=== PATIENT | female | born 1975 | race African-American/Black ===

== ENCOUNTER 2016-12-22 19:10 | Emergency (ER) | payer MEDICAID ==
[~2016-12-22] VITALS: Ht 177.8 cm; Wt 100.0 kg
[~2016-12-22 19:10] MED LIST: ASPIRIN PO
[2016-12-22] MEDS ORDERED: ALPRAZOLAM 0.25 MG TABLET PO ONE (22:15)
[2016-12-22 22:50] VITALS: BP 135/77
== END 2016-12-22 22:50 | disposition home or self-care (01) ==
LOC: ER 20:46
DX: R07.89 Other chest pain (principal); R51 Headache; R91.8 Other nonspecific abnormal finding of lung field; I10 Essential (primary) hypertension; I51.7 Cardiomegaly
CPT/HCPCS: 99283

== ENCOUNTER 2017-07-25 13:09 | Emergency (ER) | payer MEDICAID ==
[~2017-07-25] VITALS: Ht 177.8 cm; Wt 103.5 kg
[2017-07-25 14:45] LABS: BASOPHILS % 0.5 % (0.0-2.0); EOSINOPHILS % 0.9 % (0.0-5.0); HEMATOCRIT. 36.1 % (36.0-48.0); HEMOGLOBIN. 12.1 g/dL (12.0-16.0); LYMPHOCYTES % 30.6 % (20.0-50.0); MEAN CORPUSCULAR HEMOGLOBIN 29.9 pg (28.0-32.0); MEAN CORPUSCULAR VOLUME 89.5 fL (81.0-99.0); MEAN PLATELET VOLUME 8.4 fl (7.4-10.4); MONOCYTES % 8.6 % (2.0-8.0); NEUTROPHILS % 59.4 % (40.0-76.0); PLATELET 215 x1000/uL (130-400); RED BLOOD CELL COUNT 4.04 mill/uL (4.2-5.4); RED CELL DISTRIBUTION WIDTH 14.2 % (11.6-14.6)
[2017-07-25 14:53] LABS: CARBON DIOXIDE 29 mEq/L (21-32); CHLORIDE 104 mEq/L (98-107); TROPONIN I < 0.02 ng/mL (0.00-0.04)
[2017-07-25 14:59] LABS: INR 1.1; PROTHROMBIN TIME 11.1 sec (9.4-11.6)
[2017-07-25 15:01] LABS: *AMPHETAMINES SCREEN URINE NEGATIVE (NEGATIVE); *BARBITURATES SCREEN URINE NEGATIVE (NEGATIVE); *BENZODIAZEPINES SCREEN URINE NEGATIVE (NEGATIVE); *COCAINE SCREEN URINE NEGATIVE (NEGATIVE); CANNABINOID URINE SCREEN NEGATIVE (NEGATIVE); METHADONE URINE SCREEN NEGATIVE (NEGATIVE); OPIATES URINE SCREEN NEGATIVE (NEGATIVE); PHENCYCLIDINE URINE SCREEN NEGATIVE (NEGATIVE)
[2017-07-25 15:53] VITALS: BP 125/82
== END 2017-07-25 18:23 | disposition home or self-care (01) ==
LOC: ER 14:17
DX: I49.3 Ventricular premature depolarization (principal); I10 Essential (primary) hypertension; Z79.82 Long term (current) use of aspirin; Z90.710 Acquired absence of both cervix and uterus
CPT/HCPCS: 36415; 71010; 80048; 80305; 81025; 83880; 84443; 84484; 85025; 85610; 93005; 99285; Z7610

== ENCOUNTER 2018-06-28 03:27 | Inpatient (IN) | payer MEDICAID ==
[~2018-06-28] VITALS: Ht 175.3 cm; Wt 104.3 kg
[2018-06-28] MEDS: IPRATROPIUM/ALBUTEROL 0.5-3(2.5)MG/3ML NEB INH SCH (02:20)
[2018-06-28] MEDS ORDERED: ONDANSETRON HCL 4MG/2ML INJ IV STA (03:52)
[2018-06-28] MEDS ORDERED: LORAZEPAM 2MG/ML CPJ IV ONE (04:00)
[2018-06-28] MEDS ORDERED: PROPRANOLOL HCL 1MG/ML AMPULE IV ONE (04:00)
[2018-06-28] MEDS ORDERED: DILTIAZEM HCL 60MG TABLET PO ONE (04:15)
[2018-06-28 04:39] LABS: CHLORIDE 106 mEq/L (98-107)
[2018-06-28 04:41] LABS: BASOPHILS % 0.9 % (0.0-2.0); EOSINOPHILS % 1.3 % (0.0-5.0); HEMATOCRIT. 37.6 % (36.0-48.0); HEMOGLOBIN. 12.7 g/dL (12.0-16.0); LYMPHOCYTES % 48.9 % (20.0-50.0); MEAN CORPUSCULAR HEMOGLOBIN 30.3 pg (28.0-32.0); MEAN CORPUSCULAR VOLUME 89.6 fL (81.0-99.0); MEAN PLATELET VOLUME 8.3 fl (7.4-10.4); MONOCYTES % 10.7 % (2.0-8.0); NEUTROPHILS % 38.2 % (40.0-76.0); PLATELET 191 x1000/uL (130-400); RED BLOOD CELL COUNT 4.19 mill/uL (4.2-5.4); RED CELL DISTRIBUTION WIDTH 12.9 % (11.6-14.6)
[2018-06-28 04:46] LABS: INR 1.1; PROTHROMBIN TIME 10.7 sec (9.1-11.1)
[2018-06-28] MEDS: SODIUM CHLORIDE 0.9% 1,000 ML IV SCH ×2 (05:50→06:29)
[2018-06-28] MEDS ORDERED: ACETAMINOPHEN 325MG TABLET PO PRN (07:45)
[2018-06-28] MEDS ORDERED: POTASSIUM CHLORIDE 20MEQ TABLET SR PO SCH (07:45)
[2018-06-28] MEDS ORDERED: HYDROCODONE/ACETAMINOPHEN 5/325MG TABLET PO PRN (07:45)
[2018-06-28] MEDS ORDERED: ONDANSETRON HCL 4MG/2ML INJ IV PRN (07:45)
[2018-06-28] MEDS ORDERED: MAGNESIUM/ALUMINUM HYDROXIDE/SIMETHICONE 30ML UDC PO PRN (07:45)
[2018-06-28] MEDS ORDERED: LORAZEPAM 0.5MG TABLET PO PRN (07:45)
[2018-06-28] MEDS ORDERED: ACETAMINOPHEN 650MG/20.3ML UDC GT PRN (07:45)
[2018-06-28] MEDS ORDERED: ACETAMINOPHEN 650MG SUPP PR PRN (07:45)
[2018-06-28 11:58] VITALS: BP 108/73
[2018-06-28 12:17] VITALS: BP 124/83
[2018-06-28 13:27] LABS: T4 FREE 1.04 ng/dL (0.76-1.46)
[2018-06-28] MEDS: DILTIAZEM HCL 60MG TABLET PO SCH ×2 (14:00→22:13)
[2018-06-28] MEDS: ENOXAPARIN 100MG/ML SYR SUBCUT SCH (15:30)
[2018-06-28 15:57] VITALS: BP 100/80
[2018-06-28 16:37] LABS: CHLORIDE 107 mEq/L (98-107)
[2018-06-28 16:48] LABS: CREATINE KINASE 100 IU/L (26-192)
[2018-06-28 16:50] LABS: CREATINE KINASE MB FRACTION < 1.0 ng/mL (0.5-3.6)
[2018-06-28 20:00] VITALS: BP 112/77
[2018-06-29] VITALS: BP_SYST 112; BP_DIAS 2; BP_DIAS 72
[2018-06-29 00:25] LABS: CREATINE KINASE 91 IU/L (26-192)
[2018-06-29 00:27] LABS: CREATINE KINASE MB FRACTION < 1.0 ng/mL (0.5-3.6)
[2018-06-29 04:00] VITALS: BP 114/75
[2018-06-29] MEDS: DILTIAZEM HCL 60MG TABLET PO SCH (06:23)
[2018-06-29] MEDS: ENOXAPARIN 100MG/ML SYR SUBCUT SCH (06:24)
[2018-06-29 07:14] LABS: BASOPHILS % 0.7 % (0.0-2.0); EOSINOPHILS % 1.3 % (0.0-5.0); HEMATOCRIT. 36.7 % (36.0-48.0); HEMOGLOBIN. 12.3 g/dL (12.0-16.0); LYMPHOCYTES % 43.1 % (20.0-50.0); MEAN CORPUSCULAR HEMOGLOBIN 30.1 pg (28.0-32.0); MEAN CORPUSCULAR VOLUME 90.3 fL (81.0-99.0); MEAN PLATELET VOLUME 8.6 fl (7.4-10.4); MONOCYTES % 8.7 % (2.0-8.0); NEUTROPHILS % 46.2 % (40.0-76.0); PLATELET 207 x1000/uL (130-400); RED BLOOD CELL COUNT 4.07 mill/uL (4.2-5.4); RED CELL DISTRIBUTION WIDTH 13.3 % (11.6-14.6)
[2018-06-29 07:17] LABS: CHLORIDE 107 mEq/L (98-107)
[2018-06-29 07:37] LABS: LDL CHOLESTEROL 89 mg/dL (5-100)
[2018-06-29 07:38] LABS: T4 FREE 0.94 ng/dL (0.76-1.46)
[2018-06-29 07:39] LABS: HDL CHOLESTEROL 42 mg/dL (40-59)
[2018-06-29] MEDS: IPRATROPIUM/ALBUTEROL 0.5-3(2.5)MG/3ML NEB INH SCH (07:55)
[2018-06-29 10:01] VITALS: BP 130/72
== END 2018-06-29 10:50 | disposition home or self-care (01) | DRG 201 ==
LOC: ER 03:27 → EDBEDREQTM 05:24 → EDBEDREQ 05:24 → 6WST 05:25 → EDBEDREQTM 05:30 → EDBEDREQ 05:30 → ENRESERV 06:57
PROVIDERS: ADMIT Internal Medicine; ATTEND Internal Medicine
DX: I48.91 Unspecified atrial fibrillation (principal); E03.9 Hypothyroidism, unspecified; I10 Essential (primary) hypertension; E87.6 Hypokalemia; Z90.710 Acquired absence of both cervix and uterus
CPT/HCPCS: 36415; 71045; 80048; 80053; 80061; 82550; 82553; 83690; 83735; 83880; 84439; 84443; 84481; 84484; 85025; 85610; 93005; 93306; 93970; 96374; 96375; 99291; J1650; J1800; J2060; J2405; J7030; J7620

== ENCOUNTER 2018-11-03 10:31 | Emergency (ER) | payer MEDICAID ==
[~2018-11-03] VITALS: Ht 172.7 cm; Wt 96.0 kg
[2018-11-03] MEDS ORDERED: SODIUM CHLORIDE 0.9% 1,000 ML IV ONE (11:02)
[2018-11-03] MEDS ORDERED: LORAZEPAM 2MG/ML CPJ IV ONE (11:15)
[2018-11-03 11:30] LABS: BASOPHILS % 0.6 % (0.0-2.0); EOSINOPHILS % 0.2 % (0.0-5.0); HEMATOCRIT. 36.9 % (36.0-48.0); HEMOGLOBIN. 12.5 g/dL (12.0-16.0); LYMPHOCYTES % 22.7 % (20.0-50.0); MEAN CORPUSCULAR HEMOGLOBIN 30.3 pg (28.0-32.0); MEAN CORPUSCULAR VOLUME 89.5 fL (81.0-99.0); MEAN PLATELET VOLUME 7.8 fl (7.4-10.4); NEUTROPHILS % 71.5 % (40.0-76.0); PLATELET 239 x1000/uL (130-400); RED BLOOD CELL COUNT 4.12 mill/uL (4.2-5.4); RED CELL DISTRIBUTION WIDTH 13.3 % (11.6-14.6)
[2018-11-03 11:37] LABS: CHLORIDE 105 mEq/L (98-107)
[2018-11-03 11:40] LABS: INR 1.1; PARTIAL THROMBOPLASTIN TIME 26.4 sec (23.4-31.0); PROTHROMBIN TIME 10.7 sec (9.1-11.1)
[2018-11-03] MEDS ORDERED: POTASSIUM CHLORIDE 20MEQ TABLET SR PO ONE (12:00)
[2018-11-03 13:36] VITALS: BP 139/82
== END 2018-11-03 13:50 | disposition home or self-care (01) ==
LOC: ER 10:31
DX: R00.2 Palpitations (principal); R42 Dizziness and giddiness; E87.6 Hypokalemia; I10 Essential (primary) hypertension; I48.0 Paroxysmal atrial fibrillation; Z79.82 Long term (current) use of aspirin; Z90.710 Acquired absence of both cervix and uterus
CPT/HCPCS: 36415; 71045; 80053; 81025; 83735; 83880; 84443; 84484; 85025; 85610; 85730; 93005; 96361; 96374; 99284; J2060; J7030

== ENCOUNTER 2018-11-04 18:07 | Emergency (ER) | payer MEDICAID ==
[~2018-11-04] VITALS: Ht 172.7 cm; Wt 114.0 kg
[2018-11-05 00:14] VITALS: BP 149/103
[2018-11-05] MEDS ORDERED: LORAZEPAM 1MG TABLET PO ONE (00:15)
[2018-11-05 00:41] LABS: CHLORIDE 104 mEq/L (98-107)
== END 2018-11-05 02:16 | disposition home or self-care (01) ==
LOC: ER 18:24
DX: F41.9 Anxiety disorder, unspecified (principal); E87.6 Hypokalemia; I10 Essential (primary) hypertension; Z90.710 Acquired absence of both cervix and uterus
CPT/HCPCS: 36415; 80048; 93005; 99284; Z7610

== ENCOUNTER 2019-12-19 10:57 | Emergency (ER) | payer MEDICAID ==
[~2019-12-19] VITALS: Ht 177.8 cm; Wt 95.0 kg
[~2019-12-19 10:57] MED LIST changes: -ASPIRIN PO; +DILT240T12 PO
[2019-12-19] MEDS ORDERED: OXYCODONE HCL/ACETAMINOPHEN 5/325MG TABLET PO ONE (12:45)
[2019-12-19 14:32] VITALS: BP 162/93
== END 2019-12-19 14:38 | disposition home or self-care (01) ==
LOC: ER 10:57
DX: G89.18 Other acute postprocedural pain (principal); I10 Essential (primary) hypertension; Z90.710 Acquired absence of both cervix and uterus; Z79.82 Long term (current) use of aspirin
CPT/HCPCS: 99283

== ENCOUNTER 2020-01-10 18:47 | Emergency (ER) | payer MEDICAID ==
[~2020-01-10] VITALS: Ht 177.8 cm; Wt 100.0 kg
[2020-01-10] MEDS ORDERED: ACETAMINOPHEN 500MG TABLET PO ONE (19:45)
[2020-01-10] MEDS ORDERED: ASPIRIN 81MG TABLET PO ONE (19:45)
[2020-01-10] MEDS ORDERED: NITROGLYCERIN 0.4MG TABLET SL SL PRN (19:45)
[2020-01-10] MEDS ORDERED: HYDRALAZINE 20MG/ML VIAL IV ONE (20:00)
[2020-01-10 20:34] LABS: BASOPHILS % 0.8 % (0.0-2.0); EOSINOPHILS % 1.7 % (0.0-5.0); HEMATOCRIT. 33.5 % (36.0-48.0); HEMOGLOBIN. 11.5 g/dL (12.0-16.0); LYMPHOCYTES % 42.5 % (20.0-50.0); MEAN CORPUSCULAR HEMOGLOBIN 30.3 pg (28.0-32.0); MEAN CORPUSCULAR VOLUME 88.2 fL (81.0-99.0); MEAN PLATELET VOLUME 8.3 fl (7.4-10.4); MONOCYTES % 11.6 % (2.0-8.0); NEUTROPHILS % 43.4 % (40.0-76.0); PARTIAL THROMBOPLASTIN TIME 24.7 sec (23.4-31.0); PLATELET 215 x1000/uL (130-400); PROTHROMBIN TIME 11.3 sec (9.6-11.0); RED CELL DISTRIBUTION WIDTH 14.2 % (11.6-14.6)
[2020-01-10 20:35] LABS: CHLORIDE 106 mEq/L (98-107)
[2020-01-10 22:07] VITALS: BP 133/79
== END 2020-01-10 22:09 | disposition home or self-care (01) ==
LOC: ER 18:47
DX: R07.89 Other chest pain (principal); R06.02 Shortness of breath; I10 Essential (primary) hypertension; Z90.710 Acquired absence of both cervix and uterus; Z98.890 Other specified postprocedural states
CPT/HCPCS: 36415; 71045; 80053; 81025; 84484; 85025; 85610; 85730; 93005; 99285; Z7610

== ENCOUNTER 2020-01-19 22:04 | Emergency (ER) | payer MEDICAID ==
[~2020-01-19] VITALS: Ht 175.3 cm; Wt 95.4 kg
[2020-01-19] MEDS ORDERED: LORAZEPAM 1MG TABLET PO ONE (22:45)
[2020-01-20 00:27] VITALS: BP 140/90
== END 2020-01-20 00:30 | disposition home or self-care (01) ==
LOC: ER 22:04
DX: I10 Essential (primary) hypertension (principal); F43.20 Adjustment disorder, unspecified; Z90.710 Acquired absence of both cervix and uterus; Z98.890 Other specified postprocedural states
CPT/HCPCS: 99283

== ENCOUNTER 2020-02-08 18:24 | Inpatient (IN) | payer MEDICAID ==
[~2020-02-08] VITALS: Ht 175.3 cm; Wt 95.3 kg
[2020-02-08] MEDS ORDERED: MORPHINE SULFATE 4 MG/ML CPJ (NOT FOR IM USE) IV STA (18:51)
[2020-02-08] MEDS ORDERED: SODIUM CHLORIDE 0.9% 500 ML IV ONE (18:51)
[2020-02-08] MEDS ORDERED: ONDANSETRON HCL 4MG/2ML INJ IV STA (18:51)
[2020-02-08 19:35] LABS: CLARITY URINE CLOUDY (CLEAR); COLOR URINE YELLOW (YELLOW); KETONES URINE TRACE (NEGATIVE); LEUKOCYTE ESTERASE URINE NEGATIVE (NEGATIVE); NITRITE URINE NEGATIVE (NEGATIVE); OCCULT BLOOD URINE TRACE (NEGATIVE); PH URINE 5.5 (4.5-8.0); PROTEIN URINE NEGATIVE (NEGATIVE); SPECIFIC GRAVITY URINE 1.014 (1.005-1.030); UROBILINOGEN URINE 0.2 E.U./dL (0.2-1.0)
[2020-02-08 19:38] LABS: CHLORIDE 105 mEq/L (98-107)
[2020-02-08 19:41] LABS: PROTHROMBIN TIME 10.8 sec (9.6-11.0)
[2020-02-08 19:45] LABS: BASOPHILS % 0.3 % (0.0-2.0); EOSINOPHILS % 0.4 % (0.0-5.0); HEMATOCRIT. 35.2 % (36.0-48.0); HEMOGLOBIN. 12.1 g/dL (12.0-16.0); LYMPHOCYTES % 27.5 % (20.0-50.0); MEAN CORPUSCULAR HEMOGLOBIN 30.7 pg (28.0-32.0); MEAN CORPUSCULAR VOLUME 89.6 fL (81.0-99.0); MEAN PLATELET VOLUME 8.2 fl (7.4-10.4); MONOCYTES % 7.3 % (2.0-8.0); NEUTROPHILS % 64.5 % (40.0-76.0); PLATELET 232 x1000/uL (130-400); RED BLOOD CELL COUNT 3.93 mill/uL (4.2-5.4)
[2020-02-08] MEDS ORDERED: POTASSIUM CHLORIDE 20MEQ TABLET SR PO ONE (19:45)
[2020-02-08 19:46] LABS: *AMPHETAMINES SCREEN URINE NEGATIVE (NEGATIVE); *BARBITURATES SCREEN URINE NEGATIVE (NEGATIVE)
[2020-02-08 19:47] LABS: *BENZODIAZEPINES SCREEN URINE NEGATIVE (NEGATIVE); *COCAINE SCREEN URINE NEGATIVE (NEGATIVE); CANNABINOID URINE SCREEN NEGATIVE (NEGATIVE); METHADONE URINE SCREEN NEGATIVE (NEGATIVE); OPIATES URINE SCREEN NEGATIVE (NEGATIVE); PHENCYCLIDINE URINE SCREEN NEGATIVE (NEGATIVE)
[2020-02-08 19:50] LABS: B-HCG QUANTITATIVE < 1 mIU/mL (<3)
[2020-02-08] MEDS ORDERED: IOHEXOL-300 100 ML BOTTLE ONE (21:36)
[2020-02-08] MEDS ORDERED: MORPHINE SULFATE 2 MG/ML CPJ (NOT FOR IM USE) IV ONE (21:45)
[2020-02-08] MEDS ORDERED: ONDANSETRON HCL 4MG/2ML INJ IV ONE (21:45)
[2020-02-09 08:00] VITALS: BP 121/84
[2020-02-09 08:35] VITALS: BP 162/84
[2020-02-09] MEDS ORDERED: ONDANSETRON HCL 4MG/2ML INJ IV PRN (09:30)
[2020-02-09] MEDS ORDERED: MORPHINE SULFATE 2 MG/ML CPJ (NOT FOR IM USE) IV PRN (09:30)
[2020-02-09] MEDS ORDERED: HYDRALAZINE 20MG/ML VIAL IV PRN (11:15)
[2020-02-09] MEDS ORDERED: HYDRALAZINE 10 MG in SODIUM CHLORIDE 0.9% 49.5 ML IV PRN (11:30)
[2020-02-09 12:00] VITALS: BP 162/108
[2020-02-09 16:00] VITALS: BP 141/99
[2020-02-09 20:00] VITALS: BP 138/83
[2020-02-09 20:23] VITALS: BP 138/83
== END 2020-02-09 21:30 | disposition home or self-care (01) | DRG 247 ==
LOC: ER 18:34 → 6EST 22:36 → ENRESERV 02-09 07:49
PROVIDERS: ADMIT Internal Medicine; ATTEND Internal Medicine
DX: K56.690 Other partial intestinal obstruction (principal); E87.6 Hypokalemia; K52.9 Noninfective gastroenteritis and colitis, unspecified; I10 Essential (primary) hypertension; Z79.899 Other long term (current) drug therapy; Z90.710 Acquired absence of both cervix and uterus
CPT/HCPCS: 36415; 74018; 74177; 80053; 80305; 81003; 84702; 85025; 93005; 99285; J0360; J2270; J2405; J7030; Q9967

== ENCOUNTER 2020-02-25 12:27 | Inpatient (IN) | payer MEDICAID ==
[~2020-02-25] VITALS: Ht 165.1 cm; Wt 97.5 kg
[2020-02-25] MEDS ORDERED: ASPIRIN 81MG TABLET PO ONE (13:15)
[2020-02-25] MEDS ORDERED: NITROGLYCERIN 0.4MG TABLET SL SL PRN (13:15)
[2020-02-25 14:36] LABS: BASOPHILS % 0.7 % (0.0-2.0); EOSINOPHILS % 0.5 % (0.0-5.0); HEMATOCRIT. 35.1 % (36.0-48.0); HEMOGLOBIN. 12.1 g/dL (12.0-16.0); LYMPHOCYTES % 32.3 % (20.0-50.0); MEAN CORPUSCULAR HEMOGLOBIN 30.6 pg (28.0-32.0); MEAN CORPUSCULAR VOLUME 88.9 fL (81.0-99.0); MEAN PLATELET VOLUME 8.1 fl (7.4-10.4); NEUTROPHILS % 55.5 % (40.0-76.0); PLATELET 264 x1000/uL (130-400); RED BLOOD CELL COUNT 3.95 mill/uL (4.2-5.4)
[2020-02-25 14:42] LABS: CHLORIDE 107 mEq/L (98-107)
[2020-02-25 14:47] LABS: D-DIMER 1.68 mg/L FEU (<0.50); PARTIAL THROMBOPLASTIN TIME 26.3 sec (23.4-31.0); PROTHROMBIN TIME 11.3 sec (9.6-11.0)
[2020-02-25] MEDS ORDERED: IOHEXOL-350 100 ML BOTTLE ONE (15:59)
[2020-02-25 18:00] VITALS: BP 135/115
[2020-02-25] MEDS: LORAZEPAM 2MG/ML CPJ IM PRN (18:29)
[2020-02-25 20:00] VITALS: BP 99/77
[2020-02-25] MEDS: DILTIAZEM HCL 120MG CAPSULE CD 24HR PO SCH (20:00)
[2020-02-26] VITALS: BP 117/69
[2020-02-26 04:00] VITALS: BP 123/75
[2020-02-26 08:00] VITALS: BP 129/98
[2020-02-26] MEDS: DILTIAZEM HCL 120MG CAPSULE CD 24HR PO SCH (09:00)
[2020-02-26] MEDS: LORAZEPAM 2MG/ML CPJ IM PRN (09:25)
[2020-02-26] MEDS: ENOXAPARIN 30MG/0.3ML SYR SUBCUT SCH ×2 (11:23→20:47)
[2020-02-26 12:00] VITALS: BP 132/69
[2020-02-26 16:00] VITALS: BP 139/78
[2020-02-26 20:00] VITALS: BP 118/75
[2020-02-27] VITALS: BP 123/75
[2020-02-27] MEDS: LORAZEPAM 2MG/ML CPJ IV PRN ×2 (00:14→20:08)
[2020-02-27 04:00] VITALS: BP 114/54
[2020-02-27 06:08] LABS: BASOPHILS % 0.6 % (0.0-2.0); EOSINOPHILS % 1.1 % (0.0-5.0); HEMATOCRIT. 34.2 % (36.0-48.0); LYMPHOCYTES % 35.6 % (20.0-50.0); MEAN CORPUSCULAR HEMOGLOBIN 30.7 pg (28.0-32.0); MEAN PLATELET VOLUME 8.2 fl (7.4-10.4); MONOCYTES % 11.9 % (2.0-8.0); NEUTROPHILS % 50.8 % (40.0-76.0); PLATELET 247 x1000/uL (130-400); RED BLOOD CELL COUNT 3.89 mill/uL (4.2-5.4); RED CELL DISTRIBUTION WIDTH 13.5 % (11.6-14.6)
[2020-02-27 06:32] LABS: CHLORIDE 107 mEq/L (98-107)
[2020-02-27] MEDS ORDERED: POTASSIUM CHLORIDE 20MEQ TABLET SR PO NR (07:30)
[2020-02-27 07:58] VITALS: BP 103/71
[2020-02-27] MEDS: ASPIRIN 81MG TABLET PO SCH (08:02)
[2020-02-27] MEDS: DILTIAZEM HCL 120MG CAPSULE CD 24HR PO SCH (08:03)
[2020-02-27] MEDS: ENOXAPARIN 30MG/0.3ML SYR SUBCUT SCH ×2 (08:03→20:08)
[2020-02-27 12:00] VITALS: BP 127/78
[2020-02-27 16:00] VITALS: BP 127/85
[2020-02-27 20:00] VITALS: BP 130/85
[2020-02-28] VITALS: BP 134/82
[2020-02-28 04:00] VITALS: BP 135/85
[2020-02-28 08:00] VITALS: BP 122/78
[2020-02-28] MEDS: DILTIAZEM HCL 120MG CAPSULE CD 24HR PO SCH (08:30)
[2020-02-28] MEDS: ENOXAPARIN 30MG/0.3ML SYR SUBCUT SCH (08:31)
[2020-02-28] MEDS: ASPIRIN 81MG TABLET PO SCH (08:31)
[2020-02-28] MEDS ORDERED: POTASSIUM CHLORIDE 20MEQ TABLET SR PO SCH (11:30)
[2020-02-28 12:00] VITALS: BP 98/80
[2020-02-28] MEDS ORDERED: ALPRAZOLAM 0.25 MG TABLET PO SCH (12:00)
[2020-02-28] MEDS ORDERED: ALPR0.25 MT ×2 (14:09)
[2020-02-28 14:25] VITALS: BP 98/90
== END 2020-02-28 15:40 | disposition home or self-care (01) | DRG 203 ==
LOC: ER 12:27 → MICUSO 17:05 → 7WST 17:47 → 5WST 02-27 09:20
PROVIDERS: ADMIT Internal Medicine; ATTEND Internal Medicine
DX: M94.0 Chondrocostal junction syndrome [Tietze] (principal); D72.819 Decreased white blood cell count, unspecified; I10 Essential (primary) hypertension; Z20.828 Contact with and (suspected) exposure to other viral communicable diseases; E87.6 Hypokalemia; R79.89 Other specified abnormal findings of blood chemistry; Z90.710 Acquired absence of both cervix and uterus; Z79.899 Other long term (current) drug therapy
CPT/HCPCS: 36415; 71045; 71275; 80048; 80053; 83880; 84443; 84484; 85025; 85379; 93005; 93306; 99285; J1650; J2060; Q9967; U0003-CS

== ENCOUNTER 2020-04-24 19:00 | Emergency (ER) | payer MEDICAID ==
[~2020-04-24] VITALS: Ht 170.2 cm; Wt 77.0 kg
[~2020-04-24 19:00] MED LIST changes: +ALPR0.25 MT
[2020-04-24 20:21] LABS: BASOPHILS % 0.6 % (0.0-2.0); EOSINOPHILS % 0.7 % (0.0-5.0); HEMATOCRIT. 34.1 % (36.0-48.0); HEMOGLOBIN. 11.7 g/dL (12.0-16.0); LYMPHOCYTES % 31.6 % (20.0-50.0); MEAN CORPUSCULAR HEMOGLOBIN 30.1 pg (28.0-32.0); MEAN CORPUSCULAR VOLUME 87.5 fL (81.0-99.0); MEAN PLATELET VOLUME 7.8 fl (7.4-10.4); MONOCYTES % 9.9 % (2.0-8.0); NEUTROPHILS % 57.2 % (40.0-76.0); PLATELET 209 x1000/uL (130-400); RED CELL DISTRIBUTION WIDTH 13.6 % (11.6-14.6)
[2020-04-24 20:25] LABS: CHLORIDE 105 mEq/L (98-107)
[2020-04-24 21:19] VITALS: BP 125/74
== END 2020-04-24 21:21 | disposition home or self-care (01) ==
LOC: ER 19:00
DX: I10 Essential (primary) hypertension (principal); R51 Headache; Z90.710 Acquired absence of both cervix and uterus; Z79.899 Other long term (current) drug therapy
CPT/HCPCS: 36415; 71045; 80053; 83880; 84484; 85025; 93005; 99285

== ENCOUNTER 2020-05-13 01:31 | Inpatient (IN) | payer MEDICAID ==
[~2020-05-13] VITALS: Ht 177.8 cm; Wt 95.3 kg
[2020-05-13] MEDS ORDERED: ONDANSETRON HCL 4MG/2ML INJ IV STA (02:18)
[2020-05-13] MEDS ORDERED: SODIUM CHLORIDE 0.9% 1,000 ML IV ONE ×2 (02:18→04:17)
[2020-05-13] MEDS ORDERED: MECLIZINE 25MG TABLET PO ONE ×2 (02:30→04:30)
[2020-05-13 02:39] LABS: BASOPHILS % 0.2 % (0.0-2.0); EOSINOPHILS % 0.5 % (0.0-5.0); HEMATOCRIT. 33.3 % (36.0-48.0); HEMOGLOBIN. 11.2 g/dL (12.0-16.0); LYMPHOCYTES % 20.8 % (20.0-50.0); MEAN CORPUSCULAR HEMOGLOBIN 29.3 pg (28.0-32.0); MEAN CORPUSCULAR VOLUME 87.5 fL (81.0-99.0); MONOCYTES % 6.2 % (2.0-8.0); NEUTROPHILS % 72.3 % (40.0-76.0); PLATELET 203 x1000/uL (130-400); RED BLOOD CELL COUNT 3.81 mill/uL (4.2-5.4); RED CELL DISTRIBUTION WIDTH 14.3 % (11.6-14.6)
[2020-05-13 02:44] LABS: CHLORIDE 106 mEq/L (98-107)
[2020-05-13 02:46] LABS: INR 1.1; PROTHROMBIN TIME 11.1 sec (9.6-11.0)
[2020-05-13 03:35] LABS: KETONES URINE NEGATIVE (NEGATIVE); LEUKOCYTE ESTERASE URINE NEGATIVE (NEGATIVE); NITRITE URINE NEGATIVE (NEGATIVE); OCCULT BLOOD URINE NEGATIVE (NEGATIVE); PROTEIN URINE NEGATIVE (NEGATIVE); SPECIFIC GRAVITY URINE 1.004 (1.005-1.030); UROBILINOGEN URINE 0.2 E.U./dL (0.2-1.0)
[2020-05-13 03:43] LABS: CLARITY URINE CLEAR (CLEAR); COLOR URINE STRAW (YELLOW)
[2020-05-13 08:54] VITALS: BP 120/77
[2020-05-13 09:00] VITALS: BP 120/77
[2020-05-13] MEDS ORDERED: ASPI-1497 PO (09:15)
[2020-05-13 09:45] VITALS: BP_SYST 125; BP_SYST 133; BP_SYST 134; BP_DIAS 83; BP_DIAS 84; BP_DIAS 86
[2020-05-13] MEDS ORDERED: ONDANSETRON HCL 4MG/2ML INJ IV PRN (10:30)
[2020-05-13] MEDS ORDERED: MECLIZINE 25MG TABLET PO PRN (10:30)
[2020-05-13] MEDS ORDERED: ACETAMINOPHEN 325MG TABLET PO PRN (10:30)
[2020-05-13 13:23] VITALS: BP 128/68
== END 2020-05-13 14:00 | disposition home or self-care (01) | DRG 48 ==
LOC: ER 01:31 → 5WST 05:59 → ENRESERV 07:29
PROVIDERS: ADMIT Internal Medicine; ATTEND Internal Medicine
DX: G90.8 Other disorders of autonomic nervous system (principal); I10 Essential (primary) hypertension; Z90.710 Acquired absence of both cervix and uterus
CPT/HCPCS: 36415; 80053; 81003; 85025; 93005; 99291; J2405; J7030; J8597

== ENCOUNTER 2020-10-27 00:37 | Emergency (ER) | payer MEDICAID ==
[~2020-10-27] VITALS: Ht 175.3 cm; Wt 91.0 kg
[~2020-10-27 00:37] MED LIST changes: -ALPR0.25 MT; +ASPI-1497 PO
[2020-10-27 02:11] LABS: BASOPHILS % 0.9 % (0.0-2.0); EOSINOPHILS % 0.9 % (0.0-5.0); HEMATOCRIT. 34.9 % (36.0-48.0); HEMOGLOBIN. 11.7 g/dL (12.0-16.0); LYMPHOCYTES % 20.7 % (20.0-50.0); MEAN CORPUSCULAR HEMOGLOBIN 29.2 pg (28.0-32.0); MEAN PLATELET VOLUME 7.4 fl (7.4-10.4); MONOCYTES % 6.1 % (2.0-8.0); NEUTROPHILS % 71.4 % (40.0-76.0); PLATELET 279 x1000/uL (130-400); RED BLOOD CELL COUNT 4.02 mill/uL (4.2-5.4); RED CELL DISTRIBUTION WIDTH 14.3 % (11.6-14.6)
[2020-10-27 02:15] LABS: CHLORIDE 101 mEq/L (98-107)
[2020-10-27 03:00] VITALS: BP 122/86
[2020-10-27] MEDS ORDERED: MECLIZINE 25MG TABLET PO ONE (04:00)
== END 2020-10-27 04:25 | disposition home or self-care (01) ==
LOC: ER 00:47
DX: I10 Essential (primary) hypertension (principal); R42 Dizziness and giddiness; Z90.710 Acquired absence of both cervix and uterus
CPT/HCPCS: 36415; 70450; 71045; 80053; 83880; 84484; 85025; 93005; 99285; J8597